=== PATIENT | male | born 1965 | race Caucasian/White ===

== ENCOUNTER → 2017-06-28 | Outpatient (CLI) | payer MEDICARE, OTHER ==
[~2017-06-28] MED LIST: ADULT LOW DOSE81 MG PO; ANDROGEL150 GM TD; APIDRA; BACTRIM DS TAB1 EACH; CALCITRIOL0.25 MCG PO; CALCIUM; COLACE100 MG PO; COREG25 MG PO; DIFLUCAN150 MG; EFFEXOR XR37.5 MG PO; FIBERCON625 MG PO; FOSAMAX 70 MG T70 M1 PO; HYTRIN PO; IMURAN 50MG TAB50 M1 PO; KEFLEX500 MG PO; LOPRESSOR 50 MG50 M1 PO; LYRICA100 MG PO; METOCLOPRAMIDE10 MG; MYFORTIC PO; NEXIUM PO; NEXIUM40 MG PO; NORVASC 5 MG TAB5 MG PO; NUCYNTA50 MG PO; OPANA ER15 M1 PO; OPANA ER20 MG PO; OPANA ER30 MG; OPANA ER30 MG PO; OPANA ER5 M1 PO; OPANA ER7.5 M1 PO; OXYCODONE HCL15 MG PO; PREDNISONE 20 M20 M1 PO; PREDNISONE 5 MG5 MG PO; PROGRAF1 MG PO; PROVIGIL 100 M100 M1; PROVIGIL 100 M100 MG PO; SENNA8.6 MG PO; SKELAXIN 800 M800 M1 PO; SODIUM THIOSULFATE IV; STOOL SOFTENER1 EAC1 PO; TRAMADOL 50 MG50 MG PO; VALCYTE450 MG; VITAMIN D-32000 UNIT PO; ZOFRAN4 MG; ZOFRAN4 MG PO; [UNRECOGNIZED DRUG - OTHER]; [UNRECOGNIZED DRUG - REMARK]
[2017-06-28 08:39] LABS: HEMATOCRIT 38.6 % (42.0-52.0); MCH 32.1 pg (26.0-34.0); MCHC 33.8 g/dL (28.0-37.0); MCV 95.1 fL (80.0-100.0); MPV 8.1 fl. (7.2-11.1); NUCLEATED RBCS 1 /100WBC; PLATELET COUNT* 270 thou/uL (150-400); RBC 4.06 mil/uL (4.50-6.00); RDW-CV 14.2 % (10.5-14.5)
[2017-06-28 08:49] LABS: ALBUMIN 3.5 g/dL (3.4-5.0); CALCIUM 9.6 mg/dL (8.5-10.1); CREATININE 1.8 mg/dL (0.6-1.3); PHOSPHORUS* 2.8 mg/dL (2.5-4.9); POTASSIUM 3.7 mmol/L (3.5-5.1)
[2017-06-28 09:01] LABS: ABSOLUTE LYMPHOCYTES 1.2 thou/uL (0.8-5.3); ABSOLUTE MONOCYTES 0.7 thou/uL (0.0-1.2); ABSOLUTE NEUTROPHILS 4.1 thou/uL (1.6-8.1); PLATELET ESTIMATE ADEQUATE
--- NOTE | 2017-06-28 09:54 | NUR ---
ARRIVED AMUBULATORY WTIH CANE. MADE SELF COMFORTABLE IN RECLINER. PORT A CATH INTACT WITH NO SIGN OF INFECTION. PORT ACCESSED WITH OUT DIFFICULTY. GOOD BRISKB LOOD RETURN NOTED AND FLUSHED WITH EASE. MONTHLY LABS DRAWN PER ORDER. PORT FLUSHED PER HOSPITAL POLICY. TOLERATED WELL. DENIES QUESTIONS OR NEEDS AT DICHARGE.
== END ==
LOC: M.INFUS 01:44
PROVIDERS: Internal Medicine Nephrology
DX: E10.65 Type 1 diabetes mellitus with hyperglycemia (principal); E78.5 Hyperlipidemia, unspecified; Z94.0 Kidney transplant status; Z79.899 Other long term (current) drug therapy

== ENCOUNTER → 2017-08-01 | Outpatient (CLI) | payer MEDICARE, OTHER ==
[2017-08-01 10:25] LABS: ABSOLUTE BASOPHILS 0.1 thou/uL (0.0-0.2); ABSOLUTE EOSINOPHILS 0.2 thou/uL (0.0-0.7); ABSOLUTE LYMPHOCYTES 0.9 thou/uL (0.8-5.3); ABSOLUTE NEUTROPHILS 4.9 thou/uL (1.6-8.1); BASOPHILS 0.9 %; EOSINOPHILS 2.4 %; HEMATOCRIT 39.5 % (42.0-52.0); HEMOGLOBIN 12.7 gm/dL (14.0-18.0); MCH 31.6 pg (26.0-34.0); MCHC 32.1 g/dL (28.0-37.0); MCV 98.3 fL (80.0-100.0); MONOCYTES 14.2 %; MPV 8.2 fl. (7.2-11.1); NUCLEATED RBCS 0 /100WBC; PLATELET COUNT* 229 thou/uL (150-400); POLYS 69.5 %; RBC 4.02 mil/uL (4.50-6.00); RDW-CV 14.5 % (10.5-14.5); WBC 7.1 thou/uL (4.0-11.0)
[2017-08-01 10:46] LABS: ALBUMIN 3.3 g/dL (3.4-5.0); ALKALINE PHOSPHATASE 102 U/L (46-116); ANION GAP 7 mmol/L (7-16); BUN 34 mg/dL (7-18); CALCIUM 9.5 mg/dL (8.5-10.1); CHLORIDE 99 mmol/L (98-107); CHOLESTEROL 144 mg/dL (<200); CO2 32 mmol/L (21-32); GLUCOSE 166 mg/dL (70-99); HDL CHOLESTEROL 63 mg/dL (>40); LDL CHOLESTEROL 58 mg/dL (<100); PHOSPHORUS* 2.9 mg/dL (2.5-4.9); POTASSIUM 5.9 mmol/L (3.5-5.1); SGOT 26 U/L (15-37); SGPT 30 U/L (30-65); SODIUM 138 mmol/L (136-145); TC:HDL 2.3 Ratio (Not establshd); TOTAL BILIRUBIN 0.4 mg/dL (<0.1-1.0); TOTAL PROTEIN 7.1 g/dL (6.4-8.2); TRIGLYCERIDE 115 mg/dL (<150); VLDL 23 mg/dL (<40)
[2017-08-01 10:47] LABS: SERUM ASSESSMENT Clear
--- NOTE | 2017-08-01 11:36 | NUR ---
ARRIVED AMBULATORY. MADE SLEF COMFORTABLE IN RECLINER. PORT A CATH ACCESSED WITHOUT DIFFICULTY. GOOD BLOOD RETURN NOTED AND FLUSHED WITH EASE. QUARTERLY LABS DRAWN FROM PORT. PORT FLUSHED AND DEACCESSED. TOLERATED WELL. DENIES NEEDS AT DISCHARGE.
[2017-08-02 02:07] LABS: GLYCOHEMOGLOBIN (HGB A1C) 6.8 % (4.8-5.6)
== END ==
LOC: M.INFUS 02:07
DX: E10.65 Type 1 diabetes mellitus with hyperglycemia (principal); E78.5 Hyperlipidemia, unspecified; Z79.899 Other long term (current) drug therapy; Z94.0 Kidney transplant status

== ENCOUNTER → 2017-09-04 | Outpatient (CLI) | payer MEDICARE, OTHER ==
--- NOTE | 2017-09-04 10:40 | NUR ---
Pt arrived to pre-op for lab draw from Port. Port was accessed without difficulty. Initially got blood to draw back, but then unable to obtain. Worked with the needle repositioning, and flushing with NS several times back and forth, and finally blood returned in enough capacity to obtain sample. Blood with filled with whitish lumps maybe indicating the reason for difficulty drawing back was because of occlusion. Port de-accessed after packing with heparin flush, and band-aid placed. Pt. tolerated well.
[2017-09-04 10:56] LABS: HEMATOCRIT 38.6 % (42.0-52.0); MCH 31.8 pg (26.0-34.0); MCHC 33.6 g/dL (28.0-37.0); MCV 94.7 fL (80.0-100.0); NUCLEATED RBCS 0 /100WBC; PLATELET COUNT* 235 thou/uL (150-400); RBC 4.08 mil/uL (4.50-6.00); RDW-CV 14.6 % (10.5-14.5); WBC 8.4 thou/uL (4.0-11.0)
[2017-09-04 11:05] LABS: ALBUMIN 3.4 g/dL (3.4-5.0); CALCIUM 9.2 mg/dL (8.5-10.1); PHOSPHORUS* 2.1 mg/dL (2.5-4.9); POTASSIUM 4.5 mmol/L (3.5-5.1)
[2017-09-04 11:22] LABS: ABSOLUTE EOSINOPHILS 0.3 thou/uL (0.0-0.7); ABSOLUTE LYMPHOCYTES 0.9 thou/uL (0.8-5.3); ABSOLUTE MONOCYTES 0.6 thou/uL (0.0-1.2); ABSOLUTE NEUTROPHILS 6.6 thou/uL (1.6-8.1); ATYPICAL LYMPHS 3 %
[2017-09-04 11:23] LABS: PLATELET ESTIMATE ADEQUATE
== END ==
LOC: M.INFUS 01:57
PROVIDERS: Internal Medicine Nephrology
DX: E10.65 Type 1 diabetes mellitus with hyperglycemia (principal); E78.5 Hyperlipidemia, unspecified; Z79.899 Other long term (current) drug therapy; Z94.0 Kidney transplant status

== ENCOUNTER → 2017-10-19 | Outpatient (CLI) | payer MEDICARE, OTHER ==
--- NOTE | 2017-10-19 10:17 | NUR ---
ARRIVED AMBULATORY WITH CANE. MADE SELF COMFORTABLE. PORT A CATH ACCESSED WITH OUT DIFICULTY. GOOD BRISK BLOOD RETURN NOTED AND FLUSEHD WITH EASE. MONTHLY AND QUARTERLY LABS DRAWN PER STANDING ORDER. PORT FLUSHED PER PROTOCOL THEN DEACCESSED. TOLERATED WELL. DENIES NEEDS AT DISCHARGE.
[2017-10-19 10:19] LABS: ABSOLUTE BASOPHILS 0.1 thou/uL (0.0-0.2); ABSOLUTE EOSINOPHILS 0.1 thou/uL (0.0-0.7); ABSOLUTE LYMPHOCYTES 0.8 thou/uL (0.8-5.3); ABSOLUTE MONOCYTES 0.9 thou/uL (0.0-1.2); ABSOLUTE NEUTROPHILS 6.3 thou/uL (1.6-8.1); BASOPHILS 0.7 %; EOSINOPHILS 1.2 %; HEMATOCRIT 39.1 % (42.0-52.0); LYMPHOCYTES 10.1 %; MCHC 33.1 g/dL (28.0-37.0); MCV 93.7 fL (80.0-100.0); MONOCYTES 11.2 %; MPV 7.9 fl. (7.2-11.1); NUCLEATED RBCS 0 /100WBC; PLATELET COUNT* 258 thou/uL (150-400); POLYS 76.8 %; RBC 4.17 mil/uL (4.50-6.00); RDW-CV 14.3 % (10.5-14.5); WBC 8.2 thou/uL (4.0-11.0)
[2017-10-19 10:33] LABS: ALBUMIN 3.4 g/dL (3.4-5.0); ALKALINE PHOSPHATASE 105 U/L (46-116); ANION GAP 8 mmol/L (7-16); BUN 41 mg/dL (7-18); CALCIUM 9.7 mg/dL (8.5-10.1); CHLORIDE 103 mmol/L (98-107); CHOLESTEROL 134 mg/dL (<200); CO2 32 mmol/L (21-32); CREATININE 1.8 mg/dL (0.6-1.3); GLUCOSE 123 mg/dL (70-99); HDL CHOLESTEROL 54 mg/dL (>40); LDL CHOLESTEROL 59 mg/dL (<100); PHOSPHORUS* 2.7 mg/dL (2.5-4.9); POTASSIUM 3.8 mmol/L (3.5-5.1); SGOT 32 U/L (15-37); SGPT 31 U/L (30-65); SODIUM 143 mmol/L (136-145); TC:HDL 2.5 Ratio (Not establshd); TOTAL BILIRUBIN 0.4 mg/dL (<0.1-1.0); TOTAL PROTEIN 7.5 g/dL (6.4-8.2); TRIGLYCERIDE 105 mg/dL (<150); VLDL 21 mg/dL (<40)
[2017-10-19 10:34] LABS: SERUM ASSESSMENT Clear
[2017-10-20 04:11] LABS: GLYCOHEMOGLOBIN (HGB A1C) 6.6 % (4.8-5.6)
== END ==
LOC: M.INFUS 10-18 02:26
DX: E10.65 Type 1 diabetes mellitus with hyperglycemia (principal); E78.5 Hyperlipidemia, unspecified; Z79.899 Other long term (current) drug therapy; Z94.0 Kidney transplant status

== ENCOUNTER → 2017-12-22 | Outpatient (CLI) | payer MEDICARE, OTHER ==
[2017-12-22 10:02] LABS: HEMATOCRIT 38.6 % (42.0-52.0); HEMOGLOBIN 12.8 gm/dL (14.0-18.0); MCH 31.4 pg (26.0-34.0); MCHC 33.3 g/dL (28.0-37.0); MCV 94.4 fL (80.0-100.0); MPV 8.4 fl. (7.2-11.1); NUCLEATED RBCS 0 /100WBC; PLATELET COUNT* 283 thou/uL (150-400); RBC 4.08 mil/uL (4.50-6.00); RDW-CV 14.4 % (10.5-14.5); WBC 10.1 thou/uL (4.0-11.0)
[2017-12-22 10:22] LABS: ALBUMIN 3.4 g/dL (3.4-5.0); CALCIUM 10.2 mg/dL (8.5-10.1); CREATININE 1.9 mg/dL (0.6-1.3); POTASSIUM 3.8 mmol/L (3.5-5.1)
[2017-12-22 10:39] LABS: ABSOLUTE LYMPHOCYTES 0.8 thou/uL (0.8-5.3); ABSOLUTE MONOCYTES 1.2 thou/uL (0.0-1.2); ABSOLUTE NEUTROPHILS 8.1 thou/uL (1.6-8.1); MYELOCYTES 1 %; PLATELET ESTIMATE ADEQUATE
[2017-12-22 10:40] LABS: ANISOCYTOSIS Occasional; MACROCYTES Occasional; MICROCYTES Occasional
--- NOTE | 2017-12-22 13:37 | NUR ---
ARRIVED AMBULATORY. MADE SELF COMFORTABLE IN RECLINER. PORT A CATH SITE FREE FROM INFECTION. PORT ACCESSED WTIH OUT DIFFICULTTY. GOOD BRISK BLOOD RETURN NOTED AND FLUSHED WITH EASE. MONTHLY LABS DRAWN PER STANDING ORDER. PORT FLUSHED AND DEACCESSED. TOLERATED WELL.
== END ==
LOC: M.INFUS 02:32
PROVIDERS: Internal Medicine Nephrology
DX: E10.65 Type 1 diabetes mellitus with hyperglycemia (principal); Z79.899 Other long term (current) drug therapy; Z79.4 Long term (current) use of insulin

== ENCOUNTER → 2018-01-15 | Outpatient (CLI) | payer MEDICARE, OTHER ==
[2018-01-15 11:12] LABS: HEMATOCRIT 39.3 % (42.0-52.0); HEMOGLOBIN 12.9 gm/dL (14.0-18.0); MCH 31.3 pg (26.0-34.0); MCHC 32.8 g/dL (28.0-37.0); MCV 95.4 fL (80.0-100.0); MPV 8.1 fl. (7.2-11.1); NUCLEATED RBCS 0 /100WBC; PLATELET COUNT* 265 thou/uL (150-400); RBC 4.12 mil/uL (4.50-6.00); RDW-CV 14.7 % (10.5-14.5); WBC 8.7 thou/uL (4.0-11.0)
[2018-01-15 11:23] LABS: ALBUMIN 3.5 g/dL (3.4-5.0); ALKALINE PHOSPHATASE 102 U/L (46-116); ANION GAP 8 mmol/L (7-16); BUN 38 mg/dL (7-18); CHLORIDE 102 mmol/L (98-107); CHOLESTEROL 124 mg/dL (<200); CO2 29 mmol/L (21-32); CREATININE 1.9 mg/dL (0.6-1.3); GLUCOSE 157 mg/dL (70-99); HDL CHOLESTEROL 52 mg/dL (>40); LDL CHOLESTEROL 49 mg/dL (<100); PHOSPHORUS* 3.1 mg/dL (2.5-4.9); POTASSIUM 3.7 mmol/L (3.5-5.1); SGOT 27 U/L (15-37); SGPT 28 U/L (30-65); SODIUM 139 mmol/L (136-145); TC:HDL 2.4 Ratio (Not establshd); TOTAL BILIRUBIN 0.4 mg/dL (<0.1-1.0); TOTAL PROTEIN 7.6 g/dL (6.4-8.2); TRIGLYCERIDE 117 mg/dL (<150); VLDL 23 mg/dL (<40)
[2018-01-15 11:24] LABS: SERUM ASSESSMENT Clear
--- NOTE | 2018-01-15 11:35 | NUR ---
ARRIVED AMBULATORY. MADE SELF COMFORTABLE IN RELCINER. PORT A CATH ACCESSED WITH OUT DIFFICULTY. GOOD BRISK BLOOOD RETURN NOTED FLUSH WITH EASE. QUARTERLY LABS DRAWN PER STANDING ORDER. PORT FLUSHED AND THEN DEACCESSED. TOLERATED WELL. BLOOD TAKEN TO LAB
[2018-01-15 13:19] LABS: ABSOLUTE LYMPHOCYTES 0.1 thou/uL (0.8-5.3); ABSOLUTE MONOCYTES 1.1 thou/uL (0.0-1.2); ABSOLUTE NEUTROPHILS 7.5 thou/uL (1.6-8.1)
[2018-01-15 13:22] LABS: PLATELET ESTIMATE ADEQUATE
[2018-01-15 13:23] LABS: MACROCYTES Occasional
[2018-01-16 04:08] LABS: GLYCOHEMOGLOBIN (HGB A1C) 6.8 % (4.8-5.6)
== END ==
LOC: M.INFUS 05:54
PROVIDERS: Internal Medicine Nephrology
DX: E10.65 Type 1 diabetes mellitus with hyperglycemia (principal); E78.5 Hyperlipidemia, unspecified; D89.9 Disorder involving the immune mechanism, unspecified; Z94.0 Kidney transplant status; Z79.899 Other long term (current) drug therapy

== ENCOUNTER → 2018-03-02 | Outpatient (CLI) | payer MEDICARE, OTHER ==
--- NOTE | 2018-03-02 10:33 | NUR ---
ARRIVED MABULATORY WITH CANE. MADE SELF COMFORTABLE IN RECLINER.PORT A CATH ACCESSED WITH OUT DIFFICULTY. GOOD BRISK BLOOD RETURN AND EASY FLUSH. MMONTHLY LABS DRAWNPER STANDING ORDER. PORT FLUSHED AND DEACCESSED. DENIES QUESTIONS OR NEEDS AT DISCHARGE.
[2018-03-02 10:53] LABS: ABSOLUTE EOSINOPHILS 0.2 thou/uL (0.0-0.7); ABSOLUTE MONOCYTES 1.1 thou/uL (0.0-1.2); ABSOLUTE NEUTROPHILS 4.3 thou/uL (1.6-8.1); BASOPHILS 0.7 %; EOSINOPHILS 2.3 %; HEMATOCRIT 38.6 % (42.0-52.0); HEMOGLOBIN 12.8 gm/dL (14.0-18.0); MCH 31.3 pg (26.0-34.0); MCHC 33.2 g/dL (28.0-37.0); MCV 94.3 fL (80.0-100.0); MONOCYTES 16.4 %; MPV 7.9 fl. (7.2-11.1); NUCLEATED RBCS 0 /100WBC; PLATELET COUNT* 275 thou/uL (150-400); POLYS 65.6 %; RBC 4.09 mil/uL (4.50-6.00); RDW-CV 14.9 % (10.5-14.5); WBC 6.5 thou/uL (4.0-11.0)
[2018-03-02 11:00] LABS: ALBUMIN 3.3 g/dL (3.4-5.0); CALCIUM 9.3 mg/dL (8.5-10.1); PHOSPHORUS* 3.7 mg/dL (2.5-4.9); POTASSIUM 3.8 mmol/L (3.5-5.1)
== END ==
LOC: M.INFUS 02-28 03:25
PROVIDERS: Internal Medicine Nephrology
DX: E10.65 Type 1 diabetes mellitus with hyperglycemia (principal); E78.5 Hyperlipidemia, unspecified; Z79.899 Other long term (current) drug therapy; Z94.0 Kidney transplant status

== ENCOUNTER → 2018-04-04 | Outpatient (CLI) | payer MEDICARE, OTHER ==
[2018-04-04 10:45] LABS: ABSOLUTE BASOPHILS 0.1 thou/uL (0.0-0.2); ABSOLUTE EOSINOPHILS 0.1 thou/uL (0.0-0.7); ABSOLUTE LYMPHOCYTES 0.7 thou/uL (0.8-5.3); ABSOLUTE MONOCYTES 0.9 thou/uL (0.0-1.2); BASOPHILS 1.1 %; EOSINOPHILS 1.7 %; HEMATOCRIT 38.7 % (42.0-52.0); HEMOGLOBIN 12.9 gm/dL (14.0-18.0); LYMPHOCYTES 10.8 %; MCH 31.5 pg (26.0-34.0); MCHC 33.3 g/dL (28.0-37.0); MCV 94.3 fL (80.0-100.0); MONOCYTES 12.9 %; MPV 7.8 fl. (7.2-11.1); NUCLEATED RBCS 0 /100WBC; PLATELET COUNT* 268 thou/uL (150-400); POLYS 73.5 %; RBC 4.11 mil/uL (4.50-6.00); RDW-CV 14.7 % (10.5-14.5); WBC 6.8 thou/uL (4.0-11.0)
--- NOTE | 2018-04-04 10:50 | NUR ---
ARRIVED AMBULATORY. MADE SELF COMFORTABLE IN RECLINER. PORT A CATH ACCESSED WITH OUT DIFFICULTY. GOOD BRISK BLOOD RETURN NOTED AND FLUSHED WITH EASE. MONTHLY LABS DRAWN. PORT FLUSHED AND DEACCESSED. TOLERATED WELL. DENEIS NEEDS AT DISCHARGE.
[2018-04-04 11:03] LABS: ALBUMIN 3.5 g/dL (3.4-5.0); CALCIUM 9.4 mg/dL (8.5-10.1); CREATININE 1.8 mg/dL (0.6-1.3); PHOSPHORUS* 2.9 mg/dL (2.5-4.9)
== END ==
LOC: M.INFUS 05:55
PROVIDERS: Internal Medicine Nephrology
DX: E78.5 Hyperlipidemia, unspecified (principal); E10.65 Type 1 diabetes mellitus with hyperglycemia; Z79.899 Other long term (current) drug therapy; Z94.0 Kidney transplant status

== ENCOUNTER → 2018-04-24 | Outpatient (CLI) | payer MEDICARE, OTHER ==
[2018-04-24 10:42] LABS: ABSOLUTE EOSINOPHILS 0.1 thou/uL (0.0-0.7); ABSOLUTE LYMPHOCYTES 0.8 thou/uL (0.8-5.3); ABSOLUTE NEUTROPHILS 4.9 thou/uL (1.6-8.1); RBC 3.85 mil/uL (4.50-6.00); WBC 6.8 thou/uL (4.0-11.0)
[2018-04-24 10:44] LABS: ABSOLUTE MONOCYTES 0.9 thou/uL (0.0-1.2); BASOPHILS 0.7 %; EOSINOPHILS 1.6 %; HEMATOCRIT 36.5 % (42.0-52.0); LYMPHOCYTES 11.9 %; MCH 31.3 pg (26.0-34.0); MCHC 32.9 g/dL (28.0-37.0); MCV 94.9 fL (80.0-100.0); MPV 8.1 fl. (7.2-11.1); NUCLEATED RBCS 0 /100WBC; PLATELET COUNT* 259 thou/uL (150-400); POLYS 71.8 %; RDW-CV 14.4 % (10.5-14.5)
[2018-04-24 10:55] LABS: ALBUMIN 3.2 g/dL (3.4-5.0); ALKALINE PHOSPHATASE 105 U/L (46-116); ANION GAP 6 mmol/L (7-16); BUN 37 mg/dL (7-18); CALCIUM 9.6 mg/dL (8.5-10.1); CHLORIDE 101 mmol/L (98-107); CHOLESTEROL 126 mg/dL (<200); CO2 30 mmol/L (21-32); CREATININE 1.9 mg/dL (0.6-1.3); GLUCOSE 127 mg/dL (70-99); HDL CHOLESTEROL 48 mg/dL (>40); LDL CHOLESTEROL 57 mg/dL (<100); PHOSPHORUS* 2.8 mg/dL (2.5-4.9); POTASSIUM 4.1 mmol/L (3.5-5.1); SERUM ASSESSMENT Clear; SGOT 28 U/L (15-37); SGPT 23 U/L (30-65); SODIUM 137 mmol/L (136-145); TC:HDL 2.6 Ratio (Not establshd); TOTAL BILIRUBIN 0.3 mg/dL (<0.1-1.0); TOTAL PROTEIN 7.2 g/dL (6.4-8.2); TRIGLYCERIDE 106 mg/dL (<150); VLDL 21 mg/dL (<40)
--- NOTE | 2018-04-24 15:27 | NUR ---
PORT A CATH ACCESSED WITH OUT DIFFICULTY. GOOD BRISK BLOOD RETURN WITH ASPERATION AND FLUSHED WITH EASE. MONTHLY AND QUARTERLY LABS DRAWN PER STANDING ORDER. LINE FLUSHED AND DEACCESSED. TOLERATED WELL. DENIES QUESTIONS OR NEEDS AT DISCHARGE.
[2018-04-24 23:07] LABS: GLYCOHEMOGLOBIN (HGB A1C) 6.8 % (4.8-5.6)
== END ==
LOC: M.INFUS 09:45
DX: Z45.2 Encounter for adjustment and management of vascular access device (principal); E10.65 Type 1 diabetes mellitus with hyperglycemia; E78.5 Hyperlipidemia, unspecified; Z79.899 Other long term (current) drug therapy; Z94.0 Kidney transplant status

== ENCOUNTER → 2018-05-10 | Outpatient (CLI) | payer MEDICARE, OTHER ==
[2018-05-10 10:44] LABS: ABSOLUTE BASOPHILS 0.1 thou/uL (0.0-0.2); ABSOLUTE EOSINOPHILS 0.2 thou/uL (0.0-0.7); ABSOLUTE LYMPHOCYTES 0.7 thou/uL (0.8-5.3); ABSOLUTE MONOCYTES 0.8 thou/uL (0.0-1.2); ABSOLUTE NEUTROPHILS 4.6 thou/uL (1.6-8.1); BASOPHILS 0.9 %; EOSINOPHILS 2.5 %; HEMOGLOBIN 11.8 gm/dL (14.0-18.0); LYMPHOCYTES 11.8 %; MCH 31.1 pg (26.0-34.0); MCHC 32.7 g/dL (28.0-37.0); MCV 94.9 fL (80.0-100.0); MONOCYTES 12.1 %; MPV 7.7 fl. (7.2-11.1); NUCLEATED RBCS 0 /100WBC; PLATELET COUNT* 365 thou/uL (150-400); POLYS 72.7 %; WBC 6.3 thou/uL (4.0-11.0)
[2018-05-10 11:18] LABS: ALBUMIN 3.3 g/dL (3.4-5.0); CALCIUM 9.6 mg/dL (8.5-10.1); CREATININE 1.8 mg/dL (0.6-1.3); PHOSPHORUS* 3.4 mg/dL (2.5-4.9); POTASSIUM 4.6 mmol/L (3.5-5.1)
== END ==
LOC: M.INFUS 02:28
DX: Z45.2 Encounter for adjustment and management of vascular access device (principal); E78.5 Hyperlipidemia, unspecified; E10.9 Type 1 diabetes mellitus without complications; Z79.899 Other long term (current) drug therapy; Z94.0 Kidney transplant status

== ENCOUNTER → 2018-05-25 | Outpatient (CLI) | payer MEDICARE, OTHER ==
[2018-05-25 13:43] LABS: ABSOLUTE EOSINOPHILS 0.2 thou/uL (0.0-0.7); ABSOLUTE LYMPHOCYTES 0.6 thou/uL (0.8-5.3); ABSOLUTE MONOCYTES 0.7 thou/uL (0.0-1.2); ABSOLUTE NEUTROPHILS 3.3 thou/uL (1.6-8.1); EOSINOPHILS 3.3 %; HEMATOCRIT 31.9 % (42.0-52.0); HEMOGLOBIN 10.7 gm/dL (14.0-18.0); MCH 32.3 pg (26.0-34.0); MCHC 33.6 g/dL (28.0-37.0); MCV 95.9 fL (80.0-100.0); MONOCYTES 13.9 %; MPV 7.4 fl. (7.2-11.1); NUCLEATED RBCS 0 /100WBC; PLATELET COUNT* 242 thou/uL (150-400); POLYS 69.8 %; RBC 3.33 mil/uL (4.50-6.00); RDW-CV 14.9 % (10.5-14.5); WBC 4.8 thou/uL (4.0-11.0)
--- NOTE | 2018-05-25 13:43 | NUR ---
ARRIVED AMUBLATORY. MADE SELF COMFORTABLE. PORT A CATH ACCESSED WITH OUT DIFFICULTY. GOOD BRISK BLOOD RETURN NOTED AND FLUSHED WITH EASE. LABS DRAWN PER ORDER. PORT FLUSHED AND DEACCESSED. DENIES QUESTIONS OR NEEDS AT DISCHARGE.
[2018-05-25 13:55] LABS: PROTIME 20.1 Seconds (9.20-11.50)
[2018-05-25 13:57] LABS: ALBUMIN 3.1 g/dL (3.4-5.0); CREATININE 1.9 mg/dL (0.6-1.3); PHOSPHORUS* 2.7 mg/dL (2.5-4.9); POTASSIUM 4.3 mmol/L (3.5-5.1)
== END ==
LOC: M.INFUS 04:42
PROVIDERS: Family Medicine
DX: I48.0 Paroxysmal atrial fibrillation (principal); Z79.01 Long term (current) use of anticoagulants

== ENCOUNTER → 2018-06-14 | Outpatient (CLI) | payer MEDICARE, OTHER ==
[2018-06-14 09:15] VITALS: BP 145/66
[2018-06-14 10:18] LABS: HEMATOCRIT 30.6 % (42.0-52.0); HEMOGLOBIN 10.3 gm/dL (14.0-18.0); MCH 32.5 pg (26.0-34.0); MCHC 33.6 g/dL (28.0-37.0); MCV 96.8 fL (80.0-100.0); MPV 7.6 fl. (7.2-11.1); NUCLEATED RBCS 0 /100WBC; PLATELET COUNT* 237 thou/uL (150-400); RBC 3.16 mil/uL (4.50-6.00); RDW-CV 15.7 % (10.5-14.5); WBC 6.1 thou/uL (4.0-11.0)
[2018-06-14 10:24] LABS: INR 2.5; PROTIME 25.1 Seconds (9.20-11.50)
[2018-06-14 10:31] LABS: ALBUMIN 3.1 g/dL (3.4-5.0); CALCIUM 9.2 mg/dL (8.5-10.1); CREATININE 2.5 mg/dL (0.6-1.3); PHOSPHORUS* 3.1 mg/dL (2.5-4.9); POTASSIUM 4.2 mmol/L (3.5-5.1)
[2018-06-14 11:24] LABS: ABSOLUTE EOSINOPHILS 0.4 thou/uL (0.0-0.7); ABSOLUTE LYMPHOCYTES 0.7 thou/uL (0.8-5.3)
[2018-06-14 11:25] LABS: ABSOLUTE MONOCYTES 0.6 thou/uL (0.0-1.2); ABSOLUTE NEUTROPHILS 4.4 thou/uL (1.6-8.1); METAMYELOCYTES 0 %; PLATELET ESTIMATE ADEQUATE
[2018-06-14 11:27] LABS: GIANT PLATELETS RARE; LARGE PLATELETS RARE
[2018-06-14 11:29] LABS: POIKILOCYTOSIS Occasional; POLYCHROMASIA 1+
== END ==
LOC: M.INFUS 04:36
PROVIDERS: Family Medicine
DX: I48.0 Paroxysmal atrial fibrillation (principal); Z79.01 Long term (current) use of anticoagulants

== ENCOUNTER → 2018-07-23 | Outpatient (CLI) | payer MEDICARE, OTHER ==
--- NOTE | 2018-07-23 12:46 | NUR ---
ARRIVED AMBULATROY WITH CANE. MADE SELF COMFORTABLE IN RECLINER. PORT ACCESSED AND NOTED TO BE PATENT. PT REPORTS TAKING PROGRAF THIS AM. REQUESTED TO NOT DRAWN [id number] AND TO COME BACK ON MONDAY TO DRAW. REST OF LABS DRAWN AND RESULTS FAXED. PORT FLUSHED AND DEACCESSED. DENEIS NEEDS AT DISCHARGE
[2018-07-23 12:50] LABS: ABSOLUTE BASOPHILS 0.1 thou/uL (0.0-0.2); ABSOLUTE EOSINOPHILS 0.2 thou/uL (0.0-0.7); ABSOLUTE LYMPHOCYTES 0.8 thou/uL (0.8-5.3); ABSOLUTE MONOCYTES 0.8 thou/uL (0.0-1.2); ABSOLUTE NEUTROPHILS 3.7 thou/uL (1.6-8.1); EOSINOPHILS 3.7 %; HEMATOCRIT 33.4 % (42.0-52.0); LYMPHOCYTES 13.9 %; MCH 32.1 pg (26.0-34.0); MCV 97.3 fL (80.0-100.0); MONOCYTES 14.2 %; MPV 7.3 fl. (7.2-11.1); NUCLEATED RBCS 0 /100WBC; PLATELET COUNT* 279 thou/uL (150-400); POLYS 67.2 %; RBC 3.43 mil/uL (4.50-6.00); RDW-CV 14.9 % (10.5-14.5); WBC 5.5 thou/uL (4.0-11.0)
[2018-07-23 12:56] LABS: INR 1.8; PROTIME 18.7 Seconds (9.20-11.50)
[2018-07-23 13:02] LABS: ALBUMIN 3.3 g/dL (3.4-5.0); ALKALINE PHOSPHATASE 92 U/L (46-116); ANION GAP 8 mmol/L (7-16); BUN 69 mg/dL (7-18); CALCIUM 9.9 mg/dL (8.5-10.1); CHLORIDE 98 mmol/L (98-107); CHOLESTEROL 113 mg/dL (<200); CO2 32 mmol/L (21-32); CREATININE 2.5 mg/dL (0.6-1.3); GLUCOSE 212 mg/dL (70-99); HDL CHOLESTEROL 44 mg/dL (>40); LDL CHOLESTEROL 46 mg/dL (<100); PHOSPHORUS* 3.7 mg/dL (2.5-4.9); POTASSIUM 4.2 mmol/L (3.5-5.1); SERUM ASSESSMENT Clear; SGOT 18 U/L (15-37); SGPT 19 U/L (30-65); SODIUM 138 mmol/L (136-145); TC:HDL 2.6 Ratio (Not establshd); TOTAL BILIRUBIN 0.4 mg/dL (<0.1-1.0); TOTAL PROTEIN 7.5 g/dL (6.4-8.2); TRIGLYCERIDE 116 mg/dL (<150); VLDL 23 mg/dL (<40)
[2018-07-23 23:09] LABS: GLYCOHEMOGLOBIN (HGB A1C) 6.2 % (4.8-5.6)
== END ==
LOC: M.INFUS 12:00
DX: Z01.812 Encounter for preprocedural laboratory examination (principal); E10.65 Type 1 diabetes mellitus with hyperglycemia; Z79.899 Other long term (current) drug therapy; Z94.0 Kidney transplant status

== ENCOUNTER → 2018-08-31 | Outpatient (CLI) | payer MEDICARE, OTHER ==
[2018-08-31 10:54] LABS: ABSOLUTE EOSINOPHILS 0.2 thou/uL (0.0-0.7); ABSOLUTE LYMPHOCYTES 0.9 thou/uL (0.8-5.3); ABSOLUTE MONOCYTES 0.8 thou/uL (0.0-1.2); ABSOLUTE NEUTROPHILS 4.3 thou/uL (1.6-8.1); BASOPHILS 0.4 %; EOSINOPHILS 2.8 %; HEMATOCRIT 34.1 % (42.0-52.0); HEMOGLOBIN 11.4 gm/dL (14.0-18.0); LYMPHOCYTES 14.9 %; MCH 31.8 pg (26.0-34.0); MCHC 33.4 g/dL (28.0-37.0); MCV 95.1 fL (80.0-100.0); MONOCYTES 13.5 %; MPV 7.6 fl. (7.2-11.1); NUCLEATED RBCS 0 /100WBC; PLATELET COUNT* 274 thou/uL (150-400); POLYS 68.4 %; RBC 3.58 mil/uL (4.50-6.00); WBC 6.2 thou/uL (4.0-11.0)
[2018-08-31 10:58] LABS: ALBUMIN 3.3 g/dL (3.4-5.0); CALCIUM 10.2 mg/dL (8.5-10.1); CREATININE 2.8 mg/dL (0.6-1.3); PHOSPHORUS* 3.9 mg/dL (2.5-4.9); POTASSIUM 3.8 mmol/L (3.5-5.1)
== END ==
LOC: M.INFUS 08-29 10:00
DX: Z45.2 Encounter for adjustment and management of vascular access device (principal); Z94.0 Kidney transplant status

== ENCOUNTER → 2018-09-25 | Outpatient (CLI) | payer MEDICARE, OTHER ==
[2018-09-25 10:20] VITALS: BP 167/73
[2018-09-25 10:41] LABS: HEMOGLOBIN 11.1 gm/dL (14.0-18.0); NUCLEATED RBCS 0 /100WBC
[2018-09-25 10:44] LABS: HEMATOCRIT 32.3 % (42.0-52.0); MCH 32.5 pg (26.0-34.0); MCHC 34.5 g/dL (28.0-37.0); MCV 94.1 fL (80.0-100.0); MPV 7.2 fl. (7.2-11.1); PLATELET COUNT* 297 thou/uL (150-400); RBC 3.43 mil/uL (4.50-6.00); RDW-CV 15.5 % (10.5-14.5); WBC 6.4 thou/uL (4.0-11.0)
[2018-09-25 10:59] LABS: ALBUMIN 3.3 g/dL (3.4-5.0); CALCIUM 10.1 mg/dL (8.5-10.1); CREATININE 2.9 mg/dL (0.6-1.3); PHOSPHORUS* 4.2 mg/dL (2.5-4.9); POTASSIUM 3.7 mmol/L (3.5-5.1)
[2018-09-25 11:18] LABS: ABSOLUTE BASOPHILS 0.1 thou/uL (0.0-0.2); ABSOLUTE EOSINOPHILS 0.2 thou/uL (0.0-0.7); ABSOLUTE LYMPHOCYTES 1.1 thou/uL (0.8-5.3); ABSOLUTE NEUTROPHILS 4.1 thou/uL (1.6-8.1); PLATELET ESTIMATE ADEQUATE
[2018-09-25 11:19] LABS: MACROCYTES 1+
[2018-09-25 11:20] LABS: HYPOCHROMASIA 1+
== END ==
LOC: M.INFUS 05:02
PROVIDERS: Family Medicine
DX: Z45.2 Encounter for adjustment and management of vascular access device (principal); Z94.0 Kidney transplant status; Z79.899 Other long term (current) drug therapy

== ENCOUNTER → 2018-10-04 | Outpatient (CLI) | payer MEDICARE, OTHER ==
[2018-10-04 11:34] LABS: ALBUMIN 3.4 g/dL (3.4-5.0); CALCIUM 10.4 mg/dL (8.5-10.1); PHOSPHORUS* 3.1 mg/dL (2.5-4.9); POTASSIUM 4.5 mmol/L (3.5-5.1)
[2018-10-04 11:56] LABS: CREATININE 2.7 mg/dL (0.6-1.3)
--- NOTE | 2018-10-04 14:24 | NUR ---
ARRIVED AMUBLATORY. MADE SELF COMFORTABLE. PORT A CATH ACCESSED. GOOD BRISK BLOOD RETURN NOTED AND FLUSHED WITH EASE. LABS DRAWN FROM PORT. PORT FLUSHED AND DEACCESSED. TOLERATED WELL. PRANAY NEEDS AT DISCHARGE.
== END ==
LOC: M.INFUS 05:55
DX: Z94.0 Kidney transplant status (principal)

== ENCOUNTER → 2018-10-23 | Outpatient (CLI) | payer MEDICARE, OTHER ==
[2018-10-23 10:43] LABS: ABSOLUTE EOSINOPHILS 0.2 thou/uL (0.0-0.7); ABSOLUTE LYMPHOCYTES 0.7 thou/uL (0.8-5.3); ABSOLUTE MONOCYTES 0.8 thou/uL (0.0-1.2); ABSOLUTE NEUTROPHILS 3.6 thou/uL (1.6-8.1); BASOPHILS 0.4 %; LYMPHOCYTES 13.6 %; MCH 33.3 pg (26.0-34.0); MCHC 34.2 g/dL (28.0-37.0); MCV 97.5 fL (80.0-100.0); MONOCYTES 15.7 %; MPV 7.3 fl. (7.2-11.1); NUCLEATED RBCS 0 /100WBC; PLATELET COUNT* 281 thou/uL (150-400); POLYS 67.3 %; RBC 3.29 mil/uL (4.50-6.00); RDW-CV 16.4 % (10.5-14.5); WBC 5.4 thou/uL (4.0-11.0)
[2018-10-23 11:07] LABS: ALBUMIN 3.3 g/dL (3.4-5.0); ALKALINE PHOSPHATASE 89 U/L (46-116); ANION GAP 6 mmol/L (7-16); BUN 61 mg/dL (7-18); CALCIUM 9.9 mg/dL (8.5-10.1); CHLORIDE 102 mmol/L (98-107); CHOLESTEROL 111 mg/dL (<200); CO2 32 mmol/L (21-32); CREATININE 2.8 mg/dL (0.6-1.3); GLUCOSE 124 mg/dL (70-99); HDL CHOLESTEROL 43 mg/dL (>40); LDL CHOLESTEROL 50 mg/dL (<100); NT-PRO BRAIN NAT PEPTIDE 3848 pg/mL (<300); PHOSPHORUS* 3.5 mg/dL (2.5-4.9); POTASSIUM 4.3 mmol/L (3.5-5.1); SGOT 22 U/L (15-37); SGPT 21 U/L (30-65); SODIUM 140 mmol/L (136-145); TC:HDL 2.6 Ratio (Not establshd); TOTAL BILIRUBIN 0.5 mg/dL (<0.1-1.0); TOTAL PROTEIN 7.6 g/dL (6.4-8.2); TRIGLYCERIDE 91 mg/dL (<150); VLDL 18 mg/dL (<40)
[2018-10-23 11:09] LABS: SERUM ASSESSMENT Clear
--- NOTE | 2018-10-23 12:55 | NUR ---
ARRIVED AMBULATORY. MADE SELF COMFORTABLE IN RECLINER. PORT A CATH ACCESSED WITH OUT DIFFICULT. GOOD BRISK BLOOD RETURN NOTED AND FLUSHED WITH EASE. QUARTERLY AND MONTHLY LABS DRAWN PER STANDING ORDER. PT ALSO HAD ADDITIONAL ORDER FROM CARDILOGIST FOR BNP. AFTER LAB DRAW PORT FLUSHED AND DEACCESSED. TOLERATED WELL.
[2018-10-24 03:07] LABS: GLYCOHEMOGLOBIN (HGB A1C) 5.8 % (4.8-5.6)
== END ==
LOC: M.INFUS 05:14
DX: Z45.2 Encounter for adjustment and management of vascular access device (principal); E10.29 Type 1 diabetes mellitus with other diabetic kidney complication; E10.65 Type 1 diabetes mellitus with hyperglycemia; I50.32 Chronic diastolic (congestive) heart failure; Z79.899 Other long term (current) drug therapy; Z94.0 Kidney transplant status

== ENCOUNTER → 2018-10-30 | Outpatient (CLI) | payer MEDICARE, OTHER ==
--- NOTE | 2018-10-30 15:19 | NUR ---
ARRIVED AMBULATORY. MADE SELF COMFORTABLE. PORT A CATH ACCESSED. PT BROUGT LAB KIT FROM [employer]. BLOOD DRAWN AND PLACED IN PROVIDED TUBES. KIT RETURNED TO PT FOR HIM TO MAIL.
== END ==
LOC: M.INFUS 04:55
DX: E10.29 Type 1 diabetes mellitus with other diabetic kidney complication (principal); E10.65 Type 1 diabetes mellitus with hyperglycemia; Z94.0 Kidney transplant status

== ENCOUNTER → 2018-11-27 | Outpatient (CLI) | payer MEDICARE, OTHER ==
--- NOTE | 2018-11-27 10:21 | NUR ---
ARRIVED AMBULAOTRY. PORT A CATH ACCESSED WITH OUT DIFFICULTY. GOOD BRISK BLOOD RETURN NOTED AND FLUSHED WITH EASE. MONTHLY LABS DRAWN PER STANDING ORDER. PORT FLUSHED AND DEACCESSED. TOLERATED WELL. DENEIS QUESTIONS OR NEEDS AT DISHCARGE.
[2018-11-27 10:28] LABS: ABSOLUTE EOSINOPHILS 0.2 thou/uL (0.0-0.7); ABSOLUTE LYMPHOCYTES 0.7 thou/uL (0.8-5.3); ABSOLUTE MONOCYTES 0.6 thou/uL (0.0-1.2); ABSOLUTE NEUTROPHILS 3.6 thou/uL (1.6-8.1); BASOPHILS 0.7 %; EOSINOPHILS 3.1 %; HEMATOCRIT 32.7 % (42.0-52.0); HEMOGLOBIN 10.8 gm/dL (14.0-18.0); LYMPHOCYTES 13.5 %; MCH 32.6 pg (26.0-34.0); MCV 98.8 fL (80.0-100.0); MONOCYTES 12.2 %; NUCLEATED RBCS 0 /100WBC; PLATELET COUNT* 285 thou/uL (150-400); POLYS 70.5 %; RBC 3.31 mil/uL (4.50-6.00); RDW-CV 14.7 % (10.5-14.5); WBC 5.2 thou/uL (4.0-11.0)
[2018-11-27 10:33] LABS: ALBUMIN 3.5 g/dL (3.4-5.0); CALCIUM 10.4 mg/dL (8.5-10.1); CREATININE 2.5 mg/dL (0.6-1.3); PHOSPHORUS* 3.3 mg/dL (2.5-4.9); POTASSIUM 4.2 mmol/L (3.5-5.1)
== END ==
LOC: M.INFUS 01:46
PROVIDERS: Internal Medicine Nephrology
DX: Z94.0 Kidney transplant status (principal)

== ENCOUNTER → 2018-12-28 | Outpatient (CLI) | payer MEDICARE, OTHER ==
[2018-12-28 10:18] LABS: ABSOLUTE EOSINOPHILS 0.2 thou/uL (0.0-0.7); ABSOLUTE LYMPHOCYTES 0.7 thou/uL (0.8-5.3); ABSOLUTE MONOCYTES 0.7 thou/uL (0.0-1.2); ABSOLUTE NEUTROPHILS 4.6 thou/uL (1.6-8.1); BASOPHILS 0.3 %; EOSINOPHILS 2.9 %; HEMATOCRIT 31.8 % (42.0-52.0); HEMOGLOBIN 10.6 gm/dL (14.0-18.0); LYMPHOCYTES 11.1 %; MCH 32.9 pg (26.0-34.0); MCHC 33.4 g/dL (28.0-37.0); MCV 98.3 fL (80.0-100.0); MONOCYTES 11.2 %; MPV 6.8 fl. (7.2-11.1); NUCLEATED RBCS 0 /100WBC; PLATELET COUNT* 278 thou/uL (150-400); POLYS 74.5 %; RBC 3.23 mil/uL (4.50-6.00); RDW-CV 14.7 % (10.5-14.5); WBC 6.2 thou/uL (4.0-11.0)
[2018-12-28 10:30] LABS: ALBUMIN 3.5 g/dL (3.4-5.0); CALCIUM 9.6 mg/dL (8.5-10.1); CREATININE 2.8 mg/dL (0.6-1.3); PHOSPHORUS* 3.4 mg/dL (2.5-4.9); POTASSIUM 4.5 mmol/L (3.5-5.1)
--- NOTE | 2018-12-28 11:25 | NUR ---
PORT ACCESSED WITH OUT DIFFICULTY. GOOD BRISK BLOOD RETURN AND EASY FLUSH. MONTHLY LABS DRAWN PER STANDING ORDER. QUARTERLY LABS DUE IN JANUARY. PORT FLUISHED NAD DEACCESSED. TOLERATED WELL. DENIES NEEDS AT DISCHARGE.
== END ==
LOC: M.INFUS 00:30
DX: Z45.2 Encounter for adjustment and management of vascular access device (principal); Z94.0 Kidney transplant status; Z79.899 Other long term (current) drug therapy

== ENCOUNTER → 2019-01-16 | Outpatient (CLI) | payer MEDICARE, OTHER ==
[2019-01-16 09:17] LABS: ABSOLUTE EOSINOPHILS 0.2 thou/uL (0.0-0.7); ABSOLUTE LYMPHOCYTES 0.6 thou/uL (0.8-5.3); ABSOLUTE MONOCYTES 0.8 thou/uL (0.0-1.2); ABSOLUTE NEUTROPHILS 4.8 thou/uL (1.6-8.1); BASOPHILS 0.4 %; EOSINOPHILS 2.4 %; HEMOGLOBIN 10.8 gm/dL (14.0-18.0); LYMPHOCYTES 9.8 %; MCH 32.7 pg (26.0-34.0); MCHC 33.7 g/dL (28.0-37.0); MCV 96.9 fL (80.0-100.0); MONOCYTES 13.1 %; MPV 7.1 fl. (7.2-11.1); NUCLEATED RBCS 0 /100WBC; PLATELET COUNT* 282 thou/uL (150-400); POLYS 74.3 %; RBC 3.31 mil/uL (4.50-6.00); WBC 6.4 thou/uL (4.0-11.0)
[2019-01-16 09:31] LABS: ALBUMIN 3.4 g/dL (3.4-5.0); ALKALINE PHOSPHATASE 103 U/L (46-116); ANION GAP 6 mmol/L (7-16); BUN 63 mg/dL (7-18); CALCIUM 10.4 mg/dL (8.5-10.1); CHLORIDE 102 mmol/L (98-107); CHOLESTEROL 104 mg/dL (<200); CO2 34 mmol/L (21-32); CREATININE 2.8 mg/dL (0.6-1.3); GLUCOSE 148 mg/dL (70-99); HDL CHOLESTEROL 38 mg/dL (>40); LDL CHOLESTEROL 54 mg/dL (<100); PHOSPHORUS* 4.5 mg/dL (2.5-4.9); POTASSIUM 4.3 mmol/L (3.5-5.1); SGOT 17 U/L (15-37); SGPT 20 U/L (30-65); SODIUM 142 mmol/L (136-145); TC:HDL 2.7 Ratio (Not establshd); TOTAL BILIRUBIN 0.4 mg/dL (<0.1-1.0); TOTAL PROTEIN 7.7 g/dL (6.4-8.2); TRIGLYCERIDE 60 mg/dL (<150); VLDL 12 mg/dL (<40)
[2019-01-16 09:32] LABS: SERUM ASSESSMENT Clear
--- NOTE | 2019-01-16 10:04 | NUR ---
ARRIVED AMBULATORY. MADE SELF COMFORTABLEPORT A CATH ACCESSED WITH OUT DIFFICULTY. GOOD BRISK BLOOD RETURN NOTED AND FLUSHED WITH EASE. QUARTERLY LABS DRAWN. PORT FLUSHED AND DEACCESSED. DENIES NEEDS AT DISCHARGE.
[2019-01-17 02:06] LABS: GLYCOHEMOGLOBIN (HGB A1C) 5.9 % (4.8-5.6)
== END ==
LOC: M.INFUS 03:38
DX: E10.29 Type 1 diabetes mellitus with other diabetic kidney complication (principal); E10.65 Type 1 diabetes mellitus with hyperglycemia; I11.0 Hypertensive heart disease with heart failure; I50.32 Chronic diastolic (congestive) heart failure; I87.2 Venous insufficiency (chronic) (peripheral); I25.84 Coronary atherosclerosis due to calcified coronary lesion; E78.2 Mixed hyperlipidemia; I73.9 Peripheral vascular disease, unspecified; I48.0 Paroxysmal atrial fibrillation; Z79.01 Long term (current) use of anticoagulants; Z94.0 Kidney transplant status; Z79.899 Other long term (current) drug therapy

== ENCOUNTER → 2019-02-25 | Outpatient (CLI) | payer MEDICARE, OTHER ==
--- NOTE | 2019-02-25 09:28 | NUR ---
ARRIVED AMBULATORY. MADE SELF COMFORTABLE IN RECLINER. PORT A CATH ACESSED WITH OUT DIFFICULTY. GOOD BRISK BLOOD RETURN AND EASY FLUSH. MONTHLY LABS DRAWN PER STANDING ORDER. PORT FLUSHED AND DEACCESED. TOLERATED WELL.
[2019-02-25 09:36] LABS: ABSOLUTE EOSINOPHILS 0.2 thou/uL (0.0-0.7); ABSOLUTE LYMPHOCYTES 0.5 thou/uL (0.8-5.3); ABSOLUTE MONOCYTES 0.7 thou/uL (0.0-1.2); ABSOLUTE NEUTROPHILS 4.4 thou/uL (1.6-8.1); BASOPHILS 0.4 %; EOSINOPHILS 2.9 %; HEMATOCRIT 33.1 % (42.0-52.0); MCH 32.6 pg (26.0-34.0); MCHC 33.2 g/dL (28.0-37.0); MCV 98.3 fL (80.0-100.0); MONOCYTES 11.8 %; MPV 7.2 fl. (7.2-11.1); NUCLEATED RBCS 0 /100WBC; PLATELET COUNT* 259 thou/uL (150-400); POLYS 75.9 %; RBC 3.37 mil/uL (4.50-6.00); RDW-CV 14.7 % (10.5-14.5); WBC 5.8 thou/uL (4.0-11.0)
[2019-02-25 10:00] LABS: ALBUMIN 3.5 g/dL (3.4-5.0); CALCIUM 9.8 mg/dL (8.5-10.1); CREATININE 2.6 mg/dL (0.6-1.3); PHOSPHORUS* 2.8 mg/dL (2.5-4.9); POTASSIUM 3.9 mmol/L (3.5-5.1); TOTAL BILIRUBIN 0.4 mg/dL (<0.1-1.0); TOTAL PROTEIN 7.7 g/dL (6.4-8.2)
== END ==
LOC: M.INFUS 00:11
PROVIDERS: Internal Medicine Nephrology
DX: Z94.0 Kidney transplant status (principal); Z79.899 Other long term (current) drug therapy

== ENCOUNTER → 2019-04-03 | Outpatient (CLI) | payer MEDICARE, OTHER ==
[2019-04-03 09:30] VITALS: BP 130/66
[2019-04-03 10:02] LABS: ABSOLUTE EOSINOPHILS 0.2 thou/uL (0.0-0.7); ABSOLUTE LYMPHOCYTES 0.6 thou/uL (0.8-5.3); ABSOLUTE NEUTROPHILS 4.2 thou/uL (1.6-8.1); BASOPHILS 0.6 %; EOSINOPHILS 3.2 %; HEMATOCRIT 32.5 % (42.0-52.0); HEMOGLOBIN 11.1 gm/dL (14.0-18.0); LYMPHOCYTES 10.1 %; MCH 32.9 pg (26.0-34.0); MCHC 34.2 g/dL (28.0-37.0); MPV 7.4 fl. (7.2-11.1); NUCLEATED RBCS 0 /100WBC; PLATELET COUNT* 244 thou/uL (150-400); POLYS 70.1 %; RBC 3.38 mil/uL (4.50-6.00); RDW-CV 14.9 % (10.5-14.5)
[2019-04-03 10:16] LABS: ALBUMIN 3.4 g/dL (3.4-5.0); CALCIUM 9.8 mg/dL (8.5-10.1); CREATININE 2.8 mg/dL (0.6-1.3); POTASSIUM 4.2 mmol/L (3.5-5.1)
== END ==
LOC: M.INFUS 04:56
PROVIDERS: Internal Medicine Nephrology
DX: Z45.2 Encounter for adjustment and management of vascular access device (principal); Z94.0 Kidney transplant status; Z79.899 Other long term (current) drug therapy

== ENCOUNTER → 2019-04-29 | Outpatient (CLI) | payer MEDICARE, OTHER ==
[2019-04-29 09:43] LABS: ABSOLUTE BASOPHILS 0.1 thou/uL (0.0-0.2); ABSOLUTE EOSINOPHILS 0.2 thou/uL (0.0-0.7); ABSOLUTE LYMPHOCYTES 0.6 thou/uL (0.8-5.3); ABSOLUTE MONOCYTES 0.9 thou/uL (0.0-1.2); ABSOLUTE NEUTROPHILS 5.6 thou/uL (1.6-8.1); BASOPHILS 0.7 %; EOSINOPHILS 2.4 %; HEMATOCRIT 33.2 % (42.0-52.0); HEMOGLOBIN 11.3 gm/dL (14.0-18.0); LYMPHOCYTES 7.7 %; MCH 32.7 pg (26.0-34.0); MCV 96.3 fL (80.0-100.0); MONOCYTES 12.5 %; MPV 7.2 fl. (7.2-11.1); NUCLEATED RBCS 0 /100WBC; PLATELET COUNT* 247 thou/uL (150-400); POLYS 76.7 %; RBC 3.44 mil/uL (4.50-6.00); RDW-CV 15.5 % (10.5-14.5); WBC 7.3 thou/uL (4.0-11.0)
[2019-04-29 09:51] LABS: ALBUMIN 3.5 g/dL (3.4-5.0); ALKALINE PHOSPHATASE 99 U/L (46-116); ANION GAP 7 mmol/L (7-16); BUN 68 mg/dL (7-18); CHLORIDE 100 mmol/L (98-107); CHOLESTEROL 106 mg/dL (<200); CO2 33 mmol/L (21-32); GLUCOSE 71 mg/dL (70-99); HDL CHOLESTEROL 46 mg/dL (>40); LDL CHOLESTEROL 45 mg/dL (<100); PHOSPHORUS* 4.3 mg/dL (2.5-4.9); POTASSIUM 4.1 mmol/L (3.5-5.1); SGOT 17 U/L (15-37); SGPT 18 U/L (30-65); SODIUM 140 mmol/L (136-145); TC:HDL 2.3 Ratio (Not establshd); TOTAL BILIRUBIN 0.4 mg/dL (<0.1-1.0); TOTAL PROTEIN 7.7 g/dL (6.4-8.2); TRIGLYCERIDE 78 mg/dL (<150); VLDL 16 mg/dL (<40)
[2019-04-29 09:57] LABS: SERUM ASSESSMENT Clear
--- NOTE | 2019-04-29 10:00 | NUR ---
ARRIVED AMBULATORY. MADE SELF COMFORTABLE IN RECLINER. PORT A CATH ACCESSED WITH OUT DIFFICULTY. GOOD BLOOD RETURN AND EASY FLUSH. QUARTLY AND MONTHLY LABS DRAWN. PORT FLUSH COMPLETED.
== END ==
LOC: M.INFUS 09:11
PROVIDERS: Internal Medicine Nephrology
DX: E10.65 Type 1 diabetes mellitus with hyperglycemia (principal); E10.29 Type 1 diabetes mellitus with other diabetic kidney complication; N28.9 Disorder of kidney and ureter, unspecified; Z94.0 Kidney transplant status

== ENCOUNTER → 2019-06-03 | Outpatient (CLI) | payer MEDICARE, OTHER ==
--- NOTE | 2019-06-03 09:08 | NUR ---
ATTIVED AMBULATORY. MADE SELF COMFORTABLE IN RECLINER. PORT A CATH ACCESSED WITH OUT DIFFICULTY. GOOD BRISK BLOOD RETURN NOTED AND FLUSHED WITH EASE. MONTHLY LABS DRAWN AND PORT FLUSHED. DENIES QUESTIONS OR NEEDS AT DISCHARGE
[2019-06-03 09:55] LABS: ABSOLUTE EOSINOPHILS 0.1 thou/uL (0.0-0.7); ABSOLUTE LYMPHOCYTES 0.6 thou/uL (0.8-5.3); ABSOLUTE MONOCYTES 0.9 thou/uL (0.0-1.2); ABSOLUTE NEUTROPHILS 4.5 thou/uL (1.6-8.1); BASOPHILS 0.4 %; EOSINOPHILS 2.3 %; HEMATOCRIT 32.5 % (42.0-52.0); LYMPHOCYTES 9.6 %; MCH 33.1 pg (26.0-34.0); MCHC 33.9 g/dL (28.0-37.0); MCV 97.9 fL (80.0-100.0); MONOCYTES 14.2 %; MPV 7.4 fl. (7.2-11.1); NUCLEATED RBCS 0 /100WBC; PLATELET COUNT* 279 thou/uL (150-400); POLYS 73.5 %; RBC 3.33 mil/uL (4.50-6.00); RDW-CV 15.5 % (10.5-14.5); WBC 6.1 thou/uL (4.0-11.0)
[2019-06-03 10:07] LABS: ALBUMIN 3.5 g/dL (3.4-5.0); CALCIUM 9.2 mg/dL (8.5-10.1); CREATININE 2.6 mg/dL (0.6-1.3); PHOSPHORUS* 4.7 mg/dL (2.5-4.9); POTASSIUM 4.3 mmol/L (3.5-5.1)
== END ==
LOC: M.INFUS 04:41
PROVIDERS: Internal Medicine Nephrology
DX: Z94.0 Kidney transplant status (principal); Z79.899 Other long term (current) drug therapy

== ENCOUNTER → 2019-07-04 | Outpatient (CLI) | payer MEDICARE, OTHER ==
[2019-07-04 10:35] LABS: ABSOLUTE EOSINOPHILS 0.5 thou/uL (0.0-0.7); ABSOLUTE LYMPHOCYTES 0.7 thou/uL (0.8-5.3); ABSOLUTE MONOCYTES 0.8 thou/uL (0.0-1.2); ABSOLUTE NEUTROPHILS 4.9 thou/uL (1.6-8.1); BASOPHILS 0.7 %; EOSINOPHILS 7.9 %; HEMATOCRIT 33.1 % (42.0-52.0); HEMOGLOBIN 11.4 gm/dL (14.0-18.0); LYMPHOCYTES 9.5 %; MCH 33.2 pg (26.0-34.0); MCHC 34.4 g/dL (28.0-37.0); MCV 96.5 fL (80.0-100.0); MONOCYTES 11.1 %; MPV 7.2 fl. (7.2-11.1); NUCLEATED RBCS 0 /100WBC; PLATELET COUNT* 267 thou/uL (150-400); POLYS 70.8 %; RBC 3.43 mil/uL (4.50-6.00); RDW-CV 14.6 % (10.5-14.5)
[2019-07-04 10:46] LABS: ALBUMIN 3.5 g/dL (3.4-5.0); CREATININE 2.6 mg/dL (0.6-1.3); PHOSPHORUS* 3.9 mg/dL (2.5-4.9); POTASSIUM 4.3 mmol/L (3.5-5.1)
== END ==
LOC: M.INFUS 01:41
DX: Z45.2 Encounter for adjustment and management of vascular access device (principal); Z94.0 Kidney transplant status

== ENCOUNTER → 2019-07-25 | Outpatient (CLI) | payer MEDICARE ==
[2019-07-25 10:58] LABS: HEMATOCRIT 30.8 % (42.0-52.0); HEMOGLOBIN 10.6 gm/dL (14.0-18.0); MCH 34.1 pg (26.0-34.0); MCHC 34.5 g/dL (28.0-37.0); MCV 98.8 fL (80.0-100.0); NUCLEATED RBCS 0 /100WBC; PLATELET COUNT* 301 thou/uL (150-400); RBC 3.12 mil/uL (4.50-6.00); RDW-CV 16.3 % (10.5-14.5); WBC 5.8 thou/uL (4.0-11.0)
--- NOTE | 2019-07-25 11:07 | NUR ---
PORT ACCESSED WITHOUT DIFFICULTY. GOOD BRISK BLOOD RETURN AND EASY FLUSH. LABS DRAWN AND PORT FLUSHED. DENIES QUESTIONS OR NEEDS AT DISCHARGED.
[2019-07-25 11:08] LABS: ALBUMIN 3.4 g/dL (3.4-5.0); CALCIUM 9.3 mg/dL (8.5-10.1); CREATININE 2.7 mg/dL (0.6-1.3); PHOSPHORUS* 3.6 mg/dL (2.5-4.9); POTASSIUM 4.4 mmol/L (3.5-5.1); TOTAL BILIRUBIN 0.4 mg/dL (<0.1-1.0); TOTAL PROTEIN 7.7 g/dL (6.4-8.2)
[2019-07-25 11:31] LABS: ABSOLUTE BASOPHILS 0.1 thou/uL (0.0-0.2); ABSOLUTE LYMPHOCYTES 0.8 thou/uL (0.8-5.3); ABSOLUTE MONOCYTES 0.1 thou/uL (0.0-1.2); ABSOLUTE NEUTROPHILS 3.8 thou/uL (1.6-8.1); ANISOCYTOSIS 1+; ATYPICAL LYMPHS 2 %; PLATELET ESTIMATE ADEQUATE
== END ==
LOC: M.INFUS 10:00
DX: E78.2 Mixed hyperlipidemia (principal); Z94.0 Kidney transplant status; Z94.83 Pancreas transplant status

== ENCOUNTER → 2019-08-15 | Outpatient (CLI) | payer MEDICARE ==
[2019-08-15 09:00] VITALS: BP 148/78
[2019-08-15 09:44] LABS: ABSOLUTE LYMPHOCYTES 0.4 thou/uL (0.8-5.3); ABSOLUTE MONOCYTES 0.6 thou/uL (0.0-1.2); ABSOLUTE NEUTROPHILS 5.8 thou/uL (1.6-8.1); BASOPHILS 0.4 %; EOSINOPHILS 0.4 %; HEMATOCRIT 31.5 % (42.0-52.0); HEMOGLOBIN 10.8 gm/dL (14.0-18.0); LYMPHOCYTES 6.4 %; MCH 33.9 pg (26.0-34.0); MCHC 34.2 g/dL (28.0-37.0); MCV 99.1 fL (80.0-100.0); MONOCYTES 9.2 %; MPV 7.6 fl. (7.2-11.1); NUCLEATED RBCS 0 /100WBC; PLATELET COUNT* 244 thou/uL (150-400); POLYS 83.6 %; RBC 3.18 mil/uL (4.50-6.00); RDW-CV 15.9 % (10.5-14.5); WBC 6.9 thou/uL (4.0-11.0)
[2019-08-15 09:54] LABS: ALBUMIN 3.5 g/dL (3.4-5.0); CALCIUM 9.3 mg/dL (8.5-10.1); CREATININE 2.3 mg/dL (0.6-1.3); PHOSPHORUS* 2.7 mg/dL (2.5-4.9); POTASSIUM 3.9 mmol/L (3.5-5.1)
== END ==
LOC: M.INFUS 04:31
DX: Z94.0 Kidney transplant status (principal); Z94.83 Pancreas transplant status; Z79.899 Other long term (current) drug therapy

== ENCOUNTER → 2019-09-12 | Outpatient (CLI) | payer MEDICARE ==
[2019-09-12 10:06] LABS: ABSOLUTE EOSINOPHILS 0.1 thou/uL (0.0-0.7); ABSOLUTE MONOCYTES 0.7 thou/uL (0.0-1.2); ABSOLUTE NEUTROPHILS 4.1 thou/uL (1.6-8.1); BASOPHILS 0.4 %; EOSINOPHILS 2.5 %; HEMATOCRIT 30.4 % (42.0-52.0); HEMOGLOBIN 10.1 gm/dL (14.0-18.0); LYMPHOCYTES 16.2 %; MCHC 33.2 g/dL (28.0-37.0); MCV 99.3 fL (80.0-100.0); MONOCYTES 11.9 %; MPV 7.2 fl. (7.2-11.1); NUCLEATED RBCS 0 /100WBC; PLATELET COUNT* 311 thou/uL (150-400); RBC 3.06 mil/uL (4.50-6.00); RDW-CV 16.3 % (10.5-14.5)
[2019-09-12 10:26] LABS: ALBUMIN 3.3 g/dL (3.4-5.0); CALCIUM 9.4 mg/dL (8.5-10.1); CREATININE 2.6 mg/dL (0.6-1.3); PHOSPHORUS* 3.5 mg/dL (2.5-4.9); POTASSIUM 3.6 mmol/L (3.5-5.1)
== END ==
LOC: M.INFUS 08:40
DX: Z45.2 Encounter for adjustment and management of vascular access device (principal); Z94.0 Kidney transplant status; Z94.83 Pancreas transplant status; Z79.899 Other long term (current) drug therapy

== ENCOUNTER → 2019-12-12 | Outpatient (CLI) | payer MEDICARE ==
--- NOTE | 2019-12-12 08:50 | NUR ---
PORT A CATH ACESSED WITH OUT DIFFICULTY. GOOD BRISK BLOOD RETURN AND EASY FLUSH. QUARTERLY LABS DRAWN PER ORDERS. PORT FLUSHED AND THEN DEACCESSED. TOLERATED WELL. DENEIS QUESTIONS OR NEEDS AT DISCHARGE.
[2019-12-12 09:42] LABS: ABSOLUTE EOSINOPHILS 0.2 thou/uL (0.0-0.7); ABSOLUTE LYMPHOCYTES 0.9 thou/uL (0.8-5.3); ABSOLUTE MONOCYTES 0.8 thou/uL (0.0-1.2); ABSOLUTE NEUTROPHILS 3.7 thou/uL (1.6-8.1); BASOPHILS 0.4 %; EOSINOPHILS 4.3 %; HEMATOCRIT 32.7 % (42.0-52.0); HEMOGLOBIN 11.3 gm/dL (14.0-18.0); LYMPHOCYTES 15.4 %; MCH 33.9 pg (26.0-34.0); MCHC 34.6 g/dL (28.0-37.0); MCV 97.9 fL (80.0-100.0); MONOCYTES 14.2 %; MPV 7.5 fl. (7.2-11.1); NUCLEATED RBCS 0 /100WBC; PLATELET COUNT* 256 thou/uL (150-400); POLYS 65.7 %; RBC 3.34 mil/uL (4.50-6.00); RDW-CV 14.8 % (10.5-14.5); WBC 5.6 thou/uL (4.0-11.0)
[2019-12-12 10:14] LABS: ALBUMIN 3.4 g/dL (3.4-5.0); ALKALINE PHOSPHATASE 115 U/L (46-116); AMYLASE 33 U/L (25-115); ANION GAP 9 mmol/L (7-16); BUN 64 mg/dL (7-18); CALCIUM 9.4 mg/dL (8.5-10.1); CHLORIDE 102 mmol/L (98-107); CHOLESTEROL 117 mg/dL (<200); CO2 30 mmol/L (21-32); CREATININE 2.7 mg/dL (0.6-1.3); GLUCOSE 135 mg/dL (70-99); HDL CHOLESTEROL 40 mg/dL (>40); LDL CHOLESTEROL 54 mg/dL (<100); LIPASE 39 U/L (73-393); PHOSPHORUS* 3.9 mg/dL (2.5-4.9); POTASSIUM 3.9 mmol/L (3.5-5.1); SGOT 19 U/L (15-37); SGPT 25 U/L (30-65); SODIUM 141 mmol/L (136-145); TC:HDL 2.9 Ratio (Not establshd); TOTAL BILIRUBIN 0.4 mg/dL (<0.1-1.0); TOTAL PROTEIN 7.8 g/dL (6.4-8.2); TRIGLYCERIDE 115 mg/dL (<150); VLDL 23 mg/dL (<40)
[2019-12-12 10:15] LABS: SERUM ASSESSMENT Clear
== END ==
LOC: M.INFUS 03:59
PROVIDERS: Internal Medicine Nephrology
DX: Z45.2 Encounter for adjustment and management of vascular access device (principal); E78.2 Mixed hyperlipidemia; Z94.0 Kidney transplant status; Z94.83 Pancreas transplant status

== ENCOUNTER → 2020-02-18 | Outpatient (CLI) | payer MEDICARE ==
[2020-02-18 10:43] LABS: ABSOLUTE EOSINOPHILS 0.2 thou/uL (0.0-0.7); ABSOLUTE LYMPHOCYTES 0.7 thou/uL (0.8-5.3); ABSOLUTE MONOCYTES 0.8 thou/uL (0.0-1.2); ABSOLUTE NEUTROPHILS 3.8 thou/uL (1.6-8.1); BASOPHILS 0.4 %; EOSINOPHILS 2.8 %; HEMOGLOBIN 11.7 gm/dL (14.0-18.0); LYMPHOCYTES 13.4 %; MCHC 34.5 g/dL (28.0-37.0); MCV 98.5 fL (80.0-100.0); MONOCYTES 13.7 %; MPV 7.3 fl. (7.2-11.1); NUCLEATED RBCS 0 /100WBC; PLATELET COUNT* 261 thou/uL (150-400); POLYS 69.7 %; RBC 3.45 mil/uL (4.50-6.00); RDW-CV 14.5 % (10.5-14.5); WBC 5.5 thou/uL (4.0-11.0)
[2020-02-18 11:58] LABS: ALBUMIN 3.7 g/dL (3.4-5.0); CALCIUM 9.2 mg/dL (8.5-10.1); CREATININE 2.4 mg/dL (0.6-1.3); PHOSPHORUS* 3.9 mg/dL (2.5-4.9); POTASSIUM 4.4 mmol/L (3.5-5.1)
--- NOTE | 2020-02-19 08:52 | NUR ---
ALL CHARTING LATE ENTRY FOR 02/18/20 PORT A CATH ACCESSED WITH OUT DIFFICULTY. GOOD BRISK BLOOD RETURN NOTED AND FLUSHED WITH EASE. MONTHLY LABS DRAWN PER ORDER. LINE FLUSHED AND DEACCESSED. TOLERATED WELL. DENIES QUESTION OR NEEDS AT DISCHARGE.
== END ==
LOC: M.INFUS 03:53
PROVIDERS: ATTEND Internal Medicine Nephrology
DX: Z45.2 Encounter for adjustment and management of vascular access device (principal); Z79.899 Other long term (current) drug therapy; Z94.0 Kidney transplant status